=== PATIENT | female | born 1965 | race Caucasian/White ===

== ENCOUNTER → 2021-05-18 10:32 | Outpatient (CLI) | payer OTHER, SELFPAY ==
[2021-05-20 10:36] LABS: SARS CoV19 IgG Positive (Negative); SARS-CoV19- IgM Negative (Negative)
== END ==
PROVIDERS: PCP Family Medicine; Visit Provider Physician Assistant Medical
DX: R05 Cough (principal); Z20.822 Contact with and (suspected) exposure to COVID-19
CPT/HCPCS: 86769

== ENCOUNTER → 2021-06-21 06:36 | Outpatient (CLI) | payer OTHER, SELFPAY ==
--- NOTE | 2021-06-21 | DI.CT.S_ITS ---
PROCEDURE: CT CHEST HIGH RESOLUTION INDICATIONS: Cough TECHNIQUE: Noncontrast 1.0 and 5.0 mm thick contiguous axial sections from the pulmonary apex to the posterior costophrenic angles, with 7 mm thick coronal and sagittal MIP reformats. 1 mm thick dynamic expiratory images acquired through the upper, mid, and lower lungs. 1.0 mm thick axial sections acquired from the dary to the posterior costophrenic angles in the prone end-inspiration position. For radiation dose reduction, the following was used: automated exposure control, adjustment of mA and/or kV according to patient size. COMPARISON: [facility], CT, ABDOMEN/PELVIS WITH CONTRAST, 08/05/2008, 10:12. FINDINGS: Image quality: Excellent. Lungs: Streaky patchy opacities present in the right middle lobe, without definite focal consolidation. Elsewhere, no subpleural reticulation. No honeycombing appearance. No tree-in-bud opacities, or mosaic lung attenuation. 1 mm calcified granuloma involving the right upper lobe image 93/6. No bronchiectasis is seen. There are areas of tiny intraluminal nondependent density seen within the trachea for example image 61/7 which could be adherent debris, technically indeterminate. Pleura: No pleural effusions or pneumothorax. Mediastinum: Heart size is normal. No pericardial effusion. Thoracic aorta and central pulmonary arteries are normal in size. Esophagus is normal in caliber. Bones and chest wall: No suspicious bony lesions. No vertebral body compression fractures. Abdomen: Visualized upper abdominal solid organs and bowel loops appear normal. IMPRESSION: Mild streaky and patchy opacities in the right middle lobe, which could reflect early bronchopneumonia. No definite focal consolidation. In the absence of recent prior studies, this finding technically age indeterminate and could also represent chronic scarring/atelectasis. Elsewhere, no specific evidence of chronic interstitial disease. Dictated by: Bishnu Miles M.D. on 06/21/2021 at 10:18 Approved by: Bishnu Miles M.D. on 06/21/2021 at 10:25
== END ==
PROVIDERS: PCP Family Medicine; Referring Provider Internal Medicine Pulmonary Disease; Visit Provider Internal Medicine Pulmonary Disease
DX: R05 Cough (principal)
CPT/HCPCS: 71250

== ENCOUNTER 2021-09-11 13:54 | Emergency (ER) | payer OTHER, SELFPAY ==
[2021-09-11 13:56] VITALS: BP 136/83; PULSE 90; RESP 18; TEMP 36.9; O2SAT 99; BMI 30.8
[2021-09-11 14:19] VITALS: PULSE 85; O2SAT 99
--- NOTE | 2021-09-11 14:21 | PC.NURSE ---
Reports intermittent sore throat since February. Two days ago noticed that it was more sore and when she palpated on the left side I felt a snap, crackle, pop, like subcutaneous emphysema. Initially made appointment with her primary, then was instructed to come to ED. Also reports pressure feeling in my neck and head. With throbbing headache behind forehead 3/10. At night, after lying down and then opening eyes, see a halo when I open my eyes back up. Sometimes it goes away with blinking and rubbing my eyes, and sometimes it takes a while.
[2021-09-11 14:30] VITALS: BP 145/84; PULSE 82; O2SAT 99
--- NOTE | 2021-09-11 15:11 | ED.URI ---
HPI - URI/Sore Throat <Jake Luna PA-C - Last Filed: 09/11/21 15:19> General Chief Complaint: Upper Respiratory Symptoms Stated Complaint: emphysema Time Seen by Provider: 09/11/21 13:58 Source: patient Mode of arrival: Ambulatory Limitations: no limitations History of Present Illness HPI Narrative: 56-year-old female with past medical history allergies, smoker presents to the ED with sore throat for several months. Patient states that the sore throat feels like a minor irritation, but causes no pain when swallowing. Patient denies fever, chills, shortness of breath, chest pain, cough, nausea, vomiting, abdominal pain, lightheadedness, dizziness, syncope. Patient states that she noticed what she thought might be subcutaneous emphysema when she palpated the left side of her neck, just lateral to the trachea, which caused her to come to the ER. Patient denies any recent bronchoscopic or endoscopic procedures, vomiting. Patient denies history of asthma, COPD. Related Data Home Medications Medication Instructions Recorded Confirmed albuterol sulfate 90 mcg/actuation 2 puff INHALATION Q4-6H PRN 05/16/21 05/16/21 aerosol inhaler Previous Rx's Medication Instructions Recorded fluticasone propionate 50 1 spray INTRANASAL Q12H #16 g 05/18/21 mcg/actuation nasal spray,suspension Allergies Allergy/AdvReac Type Severity Reaction Status Date / Time No Known Drug Allergies Allergy Verified 09/11/21 14:09 Review of Systems <Jake Luna PA-C - Last Filed: 09/11/21 15:19> Constitutional Constitutional: Denies chills, Denies fatigue, Denies fever(s), Denies frequent falls, Denies lethargy and Denies weakness Eyes Eyes: Denies change in vision, Denies eye discharge, Denies irritation and Denies loss of vision ENT Ears, Nose, Mouth, and Throat: Denies change in voice, Denies dizziness, Denies neck pain, Reports sore throat and Denies throat swelling Cardiovascular Cardiovascular: Denies chest pain, Denies irregular heart rhythm, Denies lightheadedness, Denies palpitations, Denies dyspnea, Denies dyspnea on exertion and Denies orthopnea Respiratory Respiratory: Denies cough, Denies dyspnea, Denies dyspnea on exertion and Denies wheezing Gastrointestinal Gastrointestinal: Denies abdominal pain, Denies change in bowel habits, Denies diarrhea, Denies nausea and Denies vomiting Musculoskeletal Musculoskeletal: Denies neck pain and Denies numbness Integumentary/Breasts Skin/Breast: Denies pruritus, Denies erythema, Denies rash and Denies wounds Neurologic Neurologic: Denies behavioral changes, Denies confusion, Denies dizziness, Denies frequent falls, Denies loss of vision, Denies numbness and Denies weakness Psychiatric Psychiatric: Denies anxiety, Denies behavioral changes, Denies confusion, Denies depression, Denies homicidal ideation and Denies suicidal ideation Endocrine Endocrine: Denies fatigue, Denies flushing and Denies palpitations Hematologic/Lymphatic Hematologic/Lymphatic: Denies easy bruising Allergic/Immunologic Allergic/Immunologic: Denies urticaria, Denies throat swelling and Denies wheezing Patient History <Jake Luna PA-C - Last Filed: 09/11/21 15:19> Medical History Chicken pox (~1973) Chronic cough Herpes (~1983) Pneumonia of left lower lobe due to infectious organism Post-menopause Restless leg syndrome (~2009) Screen for STD (sexually transmitted disease) Vision disorder Well female exam with routine gynecological exam Surgical History Anesthesia History of foot surgery (~06/15/87) Family History Grandmother Cancer Social History Smoking Status: Current every day smoker Smoking Status: Current every day smoker alcohol intake frequency: 0-2 drinks per day Substance Use Type: does not use Exam <Jake Luna PA-C - Last Filed: 09/11/21 15:19> Initial Vital Signs Initial Vital Signs: Vital Signs Temperature 98.4 F 09/11/21 13:56 Pulse Rate 90 09/11/21 13:56 Respiratory Rate 18 09/11/21 13:56 Blood Pressure 136/83 09/11/21 13:56 Pulse Oximetry 99 09/11/21 13:56 Const General: cooperative HENMT Head: normocephalic and atraumatic Ears: external ears normal and TM's normal bilaterally Nose: external nose normal and No nasal discharge Face and sinus: sinuses nontender, face symmetric, no sinus tenderness and No dry mucous membranes Mouth: oral mucosae normal and moist mucous membranes Teeth and gingiva: dentition normal Throat: posterior oropharynx normal, tonsils normal and uvula midline Eyes General: appearance normal, both eyes and all related structures Eyelids: eyelids normal Conjunctivae: conjunctivae normal Sclera: sclerae normal Pupils: PERRL EOM: EOM intact bilaterally Neck Neck: normal visual inspection, trachea midline, No lymphadenopathy, No midline deformity and No JVD Lymphatic: No lymphedema Other: No crepitus palpated in the neck or chest that might be suspicious for subcutaneous emphysema Chest Chest: normal inspection of the chest Resp Effort & Inspection: normal respiratory effort, able to speak in complete sentences, no respiratory distress and no use of accessory muscles Auscultation: clear to auscultation bilaterally, no rales, no rhonchi and no wheezes Cardio Rate: regular rate Rhythm: regular rhythm Heart Sounds: no click, no gallops, no murmurs and no rubs Pulses: normal peripheral pulses GI Inspection: non-distended Palpation: soft, no hepatosplenomegaly, No guarding, No pulsatile mass and No tender Auscultation: normal bowel sounds Back/Spine/Pelvis Back: No CVA tenderness Cervical Spine: cervical ROM normal and No pain with cervical ROM Thoracic/Lumbar Spine: thoracic and lumbar spine normal to inspection Skin General: no rashes or lesions noted, No jaundice and No petechiae Neuro General: patient alert, patient oriented x3, gait normal and no focal motor deficits Speech: speech normal Extrem General: full ROM, no clubbing, cyanosis or edema, no pedal edema and no calf tenderness Psych Appearance: well kempt Mental Status: mental status grossly normal Attitude: cooperative Thought Content: normal and suicidality Judgment: judgment good <Laci Delgado DO - Last Filed: 09/14/21 08:41> Initial Vital Signs Initial Vital Signs: Vital Signs Temperature 98.4 F 09/11/21 13:56 Pulse Rate 90 09/11/21 13:56 Respiratory Rate 18 09/11/21 13:56 Blood Pressure 136/83 09/11/21 13:56 Pulse Oximetry 99 09/11/21 13:56 Course <Jake Luna PA-C - Last Filed: 09/11/21 15:19> Vital Signs Vital signs: Vital Signs - 8 hr 09/11/21 13:56 09/11/21 14:19 09/11/21 14:30 Temperature 98.4 F Pulse Rate 90 85 82 Respiratory Rate 18 Blood Pressure 136/83 145/84 H Pulse Oximetry 99 99 99 <Laci Delgado DO - Last Filed: 09/14/21 08:41> Vital Signs Vital signs: Vital Signs - 8 hr 09/11/21 13:56 09/11/21 14:19 09/11/21 14:30 Temperature 98.4 F Pulse Rate 90 85 82 Respiratory Rate 18 Blood Pressure 136/83 145/84 H Pulse Oximetry 99 99 99 MDM - URI/Sore Throat <Jake Luna PA-C - Last Filed: 09/11/21 15:19> MDM Narrative Medical decision making narrative: 56-year-old female with past medical history allergies, smoker presents to the ED with sore throat for several months. Physical exam benign. No crepitus palpated in the neck or chest that might be suspicious for subcutaneous emphysema. No erythema or discharge of posterior pharynx. Tympanum bilaterally clear. Will discharge home with ED return precautions. Discharge Plan Departure Patient Disposition: Home Clinical Impression: Sore throat Instructions: Sore Throat Activity Restrictions/Additional Instructions: You were evaluated in the ED today for a sore throat. Your physical exam was very reassuring, with no evidence of subcutaneous emphysema. You eardrums and throat appear to be normal with no redness or discharge. Your sore throat is likely from postnasal drip due to allergies. You may continue to take Claritin or Zyrtec for allergies. Please return to the ED if you experience pain gums, shortness of breath, chest pain. Prescriptions: No Action fluticasone propionate 50 mcg/actuation spray,suspension 1 spray intranasal Q12H Qty: 16 RF: 2 albuterol sulfate 90 mcg/actuation HFA aerosol inhaler 2 puff inhalation Q4-6H PRNRF: 0 Referrals: Fer Ramirez MD [Primary Care Provider] - <Laci Delgado DO - Last Filed: 09/14/21 08:41> Cosign ED Attending Cosbusterature Attestation: I was immediately available in the department for consultation. This documentation has been reviewed and I agree with assessment and plan. Supervised by Laci Delgado, DO
== END 2021-09-11 15:08 | disposition home or self-care (01) ==
PROVIDERS: Emergency Provider Student in an Organized Health Care Education/Training Program; PCP Family Medicine
DX: J02.9 Acute pharyngitis, unspecified (principal)
CPT/HCPCS: 36415; 99283